=== PATIENT | male | born 1980 | race African-American/Black ===

== ENCOUNTER 2023-10-25 19:30 | Emergency (ER) | payer MEDICAID, OTHER ==
[~2023-10-25] VITALS: Ht 160 cm; Wt 73.0 kg
[~2023-10-25 19:30] MED LIST: OMEP20CA4 PO; TRAM50TA3 PO
[2023-10-25 19:46] VITALS: BP 168/108; PULSE 78; RESP 16; TEMP 98.8; O2SAT 99
[2023-10-25] MEDS: ACETAMINOPHEN 325MG TABLET PO ONE (22:09)
[2023-10-25] MEDS: LIDOCAINE HCL/PF 1% 10 MG/ML 5ML VIAL INFIL ONE (22:15)
[2023-10-25] MEDS: AMOXICILLIN/POTASSIUM CLAVULANATE 875/125MG TAB PO ONE (22:15)
[2023-10-25] MEDS: BACITRACIN ZINC OINT UDPKT TOP ONE (22:16)
[2023-10-25] MEDS ORDERED: IBUP-2029 PO (22:47)
[2023-10-25] MEDS ORDERED: AMOX1TAB16 PO (22:47)
[2023-10-25] MEDS: TETANUS, DIPHTHERIA, PERTUSSIS VAC/PF 0.5ML (>10YR OLD) IM ONE (23:00)
== END 2023-10-25 23:14 | disposition home or self-care (01) ==
LOC: ER 19:30
DX: S61.051A Open bite of right thumb without damage to nail, initial encounter (principal); Z90.49 Acquired absence of other specified parts of digestive tract; W54.0XXA Bitten by dog, initial encounter; Y93.89 Activity, other specified; Y92.89 Other specified places as the place of occurrence of the external cause; Y99.8 Other external cause status
CPT/HCPCS: 73140; 90715; 90471; 99283; J3490; Z7610 ×2

== ENCOUNTER 2023-12-19 11:38 | Emergency (ER) | payer OTHER ==
[~2023-12-19] VITALS: Ht 160 cm; Wt 70.0 kg
[~2023-12-19 11:38] MED LIST changes: +AMOX1TAB16 PO; +IBUP-2029 PO
[2023-12-19 11:51] VITALS: BP 158/82; PULSE 69; RESP 16; TEMP 98.8; O2SAT 98
[2023-12-19] MEDS ORDERED: LIDOCAINE HCL/PF 1% 10 MG/ML 5ML VIAL INFIL ONE (13:45)
[2023-12-19] MEDS: TETANUS, DIPHTHERIA, PERTUSSIS VAC/PF 0.5ML (>10YR OLD) IM ONE (14:29)
[2023-12-19] MEDS ORDERED: AMOX1TAB16 PO (15:07)
== END 2023-12-19 15:31 | disposition home or self-care (01) ==
LOC: ER 11:38
DX: S61.012A Laceration without foreign body of left thumb without damage to nail, initial encounter (principal); Z90.49 Acquired absence of other specified parts of digestive tract; W54.0XXA Bitten by dog, initial encounter; Y93.89 Activity, other specified; Y92.89 Other specified places as the place of occurrence of the external cause; Y99.8 Other external cause status
CPT/HCPCS: 12002; 99283; J3490; Z7610 ×2; 90715

== ENCOUNTER 2024-01-01 19:54 | Emergency (ER) | payer OTHER ==
[~2024-01-01] VITALS: Ht 160 cm; Wt 70.0 kg
[2024-01-01 20:22] VITALS: O2SAT 99
[2024-01-01] MEDS ORDERED: AMOX1TAB16 MT (22:55)
[2024-01-01] MEDS ORDERED: SULF1TAB48 MT (22:55)
[2024-01-01] MEDS ORDERED: MUPI15CR11 TP (22:55)
[2024-01-01 23:00] VITALS: BP 146/95; PULSE 72; RESP 15; TEMP 98
[2024-01-01] MEDS: BACITRACIN ZINC OINT UDPKT TOP ONE (23:06)
== END 2024-01-01 23:06 | disposition home or self-care (01) ==
LOC: ER 19:54
DX: S61.011D Laceration without foreign body of right thumb without damage to nail, subsequent encounter (principal); J45.909 Unspecified asthma, uncomplicated; X58.XXXD Exposure to other specified factors, subsequent encounter
CPT/HCPCS: 99283